=== PATIENT | female | born 1980 | race Two or more races ===

== ENCOUNTER 2017-09-12 11:47 | Emergency (ER) | payer SELFPAY ==
[~2017-09-12] VITALS: Ht 165.1 cm; Wt 130.6 kg
[2017-09-12 11:55] VITALS: BP 153/70
--- NOTE | 2017-09-12 13:37 | RAD ---
Left knee with patella, 4 views, 09/12/2017: History: Nontraumatic pain No fracture or dislocation is identified. No significant arthritic change is evident. There is a suggestion of a moderate-sized joint effusion. There is subcutaneous edema anteriorly. IMPRESSION: 1. No acute bony abnormality is detected. 2. Probable joint effusion.
--- NOTE | 2017-09-12 16:36 | PHYS DOC ---
Past Medical History Past Medical History: No Pertinent History Past Surgical History: Cholecystectomy, Tubal ligation, Other Additional Past Surgical Histo: endoscopy Alcohol Use: None Drug Use: None Adult General Chief Complaint Chief Complaint: LOWER EXT PAIN HPI HPI Patient is a 36 year old female who presents with left knee pain and swelling. The patient states that she has no known injury to that knee. That she got up yesterday morning took a shower and when she stepped out she noticed that her knee was in pain. It hurts to bear weight on the knee although she can walk. She has not taken ibuprofen or Tylenol. Review of Systems Review of Systems Constitutional: Denies fever or chills [] Respiratory: Denies cough or shortness of breath [] Cardiovascular: No additional information not addressed in HPI [] Musculoskeletal: See history of present illness Integument: Denies rash or skin lesions [] Neurologic: Denies headache, focal weakness or sensory changes [] Endocrine: Denies polyuria or polydipsia [] All other systems were reviewed and found to be within normal limits, except as documented in this note. Allergies Allergies Allergies Coded Allergies Type Severity Reaction Last Updated Verified No Known Drug Allergies 09/12/17 No Physical Exam Physical Exam Constitutional: Well developed, well nourished, no acute distress, non-toxic appearance. [] Cardiovascular:Heart rate regular rhythm, no murmur [] Lungs & Thorax: Bilateral breath sounds clear to auscultation [] Skin: Warm, dry, no erythema, no rash. [] Back: No tenderness, no CVA tenderness. [] Extremities: tenderness to left knee with palpation, no cyanosis, no clubbing, ROM intact, pulses and sensation intact, anterior drawer pull test shows no instability to knee, there is mild swelling and fluid noted to knee. [] Neurologic: Alert and oriented X 3, normal motor function, normal sensory function, no focal deficits noted. [] Psychologic: Affect normal, judgement normal, mood normal. [] Current Patient Data Vital Signs Vital Signs Date Time Temp Pulse Resp B/P (MAP) Pulse Ox O2 Delivery O2 Flow Rate FiO2 09/12/17 11:55 98.2 81 16 153/70 (97) 98 Room Air 98.2 EKG EKG [] Radiology/Procedures Radiology/Procedures [] Course & Med Decision Making Course & Med Decision Making Pertinent Labs and Imaging studies reviewed. (See chart for details) []1. Knee effusion Plan placed in an Magdaleno wrap for comfort. Please follow-up with your primary care provider for more evaluation of this knee condition and possible referral to orthopedics. You may take ibuprofen or Tylenol for pain. RICE the extremity. Please return to the ED if worsening. Dragon Disclaimer Dragon Disclaimer This electronic medical record was generated, in whole or in part, using a voice recognition dictation system. Departure Departure Impression: Primary Impression: Knee effusion Disposition: 01 HOME, SELF-CARE Condition: STABLE Patient Instructions: Knee Effusion Additional Instructions: Follow-up with your PCP for further evaluation of this knee effusion. You may RICE the affected knee and take ibuprofen or Tylenol for pain. NOE ELIAS APRN Sep 12, 2017 16:36
== END 2017-09-12 14:05 | disposition home or self-care (01) ==
LOC: ER 11:47
DX: M25.462 Effusion, left knee (principal); Z90.49 Acquired absence of other specified parts of digestive tract
CPT/HCPCS: 73564; 99284